=== PATIENT | female | born 1985 | race Caucasian/White ===

== ENCOUNTER 2021-05-05 16:15 | Emergency (ER) | payer OTHER, SELFPAY ==
[2021-05-05] VITALS (15 sets, daily range): BP systolic 120–187; BP diastolic 61–98; PULSE 99–123; RESP 14–25; TEMP 37.7; O2SAT 98–100
[2021-05-05 16:38] LABS: Basophils Percent Auto 0.2 % (0.2-1.2); Eosinophils Absolute Auto 0.1 K/mm3 (0-0.3); Eosinophils Percent Auto 0.5 % (0-4.4); Hematocrit 27.3 % (37.0-47.0); Hemoglobin 8.6 g/dL (12.0-15.0); Immature Granulocyte Percent A 0.8 % (0-0.5); Lymphocytes Absolute Auto 2.51 K/mm3 (0.9-3.2); Lymphocytes Percent Auto 21.2 % (18.3-44.2); Mean Corpuscular HGB Conc 31.5 g/dl (32-36); Mean Corpuscular Hemoglobin 26.6 pg (26-34); Mean Corpuscular Volume 84.5 fl (80-100); Mean Platelet Volume 8.7 fl (7.4-10.4); Monocytes Percent Auto 8.7 % (2.6-8.5); Neutrophils Absolute Auto 8.1 K/mm3 (1.3-6.7); Neutrophils Percent Auto 68.6 % (45.5-73.1); Platelet Count Result 333 k/mm3 (150-375); Red Blood Count 3.23 M/mm3 (4.2-5.4); White Blood Count 11.8 K/mm3 (4.5-10.0)
[2021-05-05 17:03] LABS: Beta HCG Quantitative < 2.39 mIU/ML
--- NOTE | 2021-05-05 17:25 | ED.FEMALEGU ---
HPI - Female Genitourinary General Chief complaint: Vaginal Bleeding Stated complaint: Weakness,Fatique Time Seen by Provider: 05/05/21 16:44 Source: patient Mode of arrival: ambulatory Limitations: no limitations History of Present Illness HPI Narrative: Patient is a 35-year-old female who presents complaining of heavy vaginal bleeding, weakness, lethargy, headache and decreased appetite x1.5 weeks. Patient is tearful during assessment. Patient reports a history of anxiety and depression. She denies dysuria, exposure to STDs or other complaints. She denies taking [id number] medications for symptom relief. Patient reports a history of anemia when she was a teenager and no further concerns. MD elicited complaint: vaginal bleeding Related Data Allergies Allergy/AdvReac Type Severity Reaction Status Date / Time Sulfa (Sulfonamide Allergy Unknown Rash Verified 05/05/21 16:23 Antibiotics) Review of Systems Review of Systems: Narrative: CONSTITUTIONAL: Denies fever, chills, or sweats. EYES: Denies visual changes, redness, or discharge. ENT: Denies rhinorrhea, congestion, sore throat, or otalgia. CARDIOVASCULAR: Denies chest pain, palpitations, or edema. RESPIRATORY: Denies cough or dyspnea. GASTROINTESTINAL: Denies abdominal pain, nausea, vomiting, or diarrhea. GENITOURINARY: Reports heavy vaginal bleeding x1.5 weeks SKIN: Denies rash or itching. MUSCULOSKELETAL: Denies back pain, joint pain, or myalgia. NEUROLOGIC: Reports headache and generalized weakness. PSYCHIATRIC: Denies anxiety or depression. [facility] Past Medical History Medical History ADHD Anxiety Depression History of PCOS Surgical History Surgical History History of tympanostomy tube placement Social History Social History (Updated 05/05/21 @ 18:54 by PHILIP Hanna) Smoking status: Former smoker Alcohol intake: never Substance use: never Living arrangements: with family Gender identity (if verbalized by the patient): Female Comments At the time of signature, I have reviewed and agree with nursing past medical, surgical, social, and family history unless otherwise noted. Please see nursing chart for further information. There is no relevant family history pertinent to the presenting complaint. Exam Narrative: Exam Narrative: GENERAL: Well-appearing, well-nourished, and in no acute distress. HEAD: Normocephalic, atraumatic. EYES: EOMI. No redness or drainage. Conjunctiva are normal. ENT: Mucous membranes pink and moist CHEST: No respiratory distress. Clear to auscultation. HEART: Regular rate and rhythm. No murmur appreciated. Normal peripheral pulses. GI: Soft, nontender without rebound, or guarding. No distention. Bowel sounds normal in all quadrants. : Pelvic exam completed, cervix closed, no lesions, active vaginal bleeding MUSCULOSKELETAL: No bony tenderness. EXTREMITIES: Normal range of motion. No edema. SKIN: Warm, dry, no rash. NEURO: No focal deficits. Alert and oriented x3. Gait steady. PSYCH: Normal affect. No signs of depression or anxiety. Course Vital Signs Vital signs: Vital Signs Temperature 37.7 C H 05/05/21 16:17 Pulse Rate 116 H 05/05/21 16:17 Respiratory Rate 18 05/05/21 16:17 Blood Pressure 148/96 H 05/05/21 16:17 Pulse Oximetry 99 05/05/21 16:17 Temperature 37.7 C H 05/05/21 16:17 Pulse Rate 99 05/05/21 19:32 Respiratory Rate 20 05/05/21 19:32 Blood Pressure 120/61 05/05/21 19:21 Pulse Oximetry 98 05/05/21 19:21 Reviewed-patient is informed that they may have pre-hypertension or hypertension based on a blood pressure reading. I recommend the patient call the primary care provider listed on their discharge instructions or a physician of their choice this week to arrange follow-up for further evaluation of possible pre-hypertension or hypertension.
--- NOTE | 2021-05-05 17:41 | PC.NURSE ---
Called in to lab and added on a CMP. Talked to Enrique at [phone]
[2021-05-05 17:55] LABS: Alanine Aminotransferase 20 U/L (4-35); Albumin Level 3.8 g/dL (3.5-5.1); Alkaline Phosphatase 76 U/L (38-126); Anion Gap 11 mmol/L (8-16); Aspartate Amino Transferase 23 U/L (14-36); Bilirubin,Total 0.2 mg/dL (0.2-1.3); Blood Urea Nitrogen 10 mg/dL (7-17); Calcium 8.7 mg/dL (8.4-10.2); Carbon Dioxide 22 mmol/L (22-30); Chloride 106 mmol/L (98-107); Estimated CRCL calculation 166 ml/min; Estimated Glomerular Filt Rate > 60; Glucose 122 mg/dL (65-105); Potassium 3.9 mmol/L (3.4-5.0); Sodium 139 mmol/L (137-145)
[2021-05-05] MEDS: SODIUM CHLORIDE 0.9% IV 1,000 ML 999 ML IV CONT ×2 (17:58→19:13)
[2021-05-05 18:55] LABS: Add Urine Microscopic? YES; Appearance Urine Cloudy (Clear); Bilirubin Urine Negative (Negative); Blood Urine 3+ (Negative); Color Urine Yellow (Yellow); Glucose Urine UA Negative (Negative); Ketones Urine Negative (Negative); Leukocyte Esterase Ur Trace LEU/UL (Negative); Mucus Urine Moderate /lpf; Nitrate Urine Negative (Negative); Protein Urine 2+ mg/dL (Negative); RBC Urine >75 /hpf (0-2); Specific Grav Ur 1.025 (1.001-1.035); Squamous Epithelial Cell Urine Occasional /hpf (Few); WBC Urine 0-3 /hpf
== END 2021-05-05 20:02 | disposition home or self-care (01) ==
PROVIDERS: Emergency Medicine; Emergency Provider Nurse Practitioner; PCP Nurse Practitioner Family
DX: N93.9 Abnormal uterine and vaginal bleeding, unspecified (principal); R03.0 Elevated blood-pressure reading, without diagnosis of hypertension; Z87.891 Personal history of nicotine dependence
CPT/HCPCS: 36415; 80053; 81001; 84702; 85025; 96361; 96374; 99284; J0131; J7030

== ENCOUNTER 2025-06-16 18:17 | Emergency (ER) | payer BC, SELFPAY ==
--- OUTSIDE RECORDS SUMMARY | 2025-06-16 18:19 | XMS_ITS | Clinical Summary ---
Author Organization [facility] Address [address] [place] [address] Phone Care Team Providers Care Entry Level Project Engineer Name Role Phone Varsha Osborn APRN, RECEPTION MANAGER Primary Care Provi betty Active Problems Problem Noted Date Diagnosed Date Panic disorder 09/26/2018 Generalized anxiety disorder 09/26/2018 Major depressive disorder, r ecurrent episode, severe with anxious distress 09/26/2018 ADHD (attention deficit hype ractivity disorder), inattentive type 09/26/2018 Social History Tobacco Use Types Packs/Day Years Used Date Smoking Tobacco: Never Assessed Comments Unknown Sex and Gender Information Value Date Recorded Sex Assigned at Not on file Legal Sex Female 7:16 PM CDT Gender Identity Not on file Sexual Orientation Not on file Plan of Treatment Health Maintenance Due Date Last Done Comments Hepatitis C Virus (HCV) Screening 1987 Human Papillomavirus (HPV) Immunization (1 - 3-dose series) 2002 Pap Smear 2008 Cervical Cancer Screening (CCS) 2017 HPV/Cotest 2017 SARS-COV-2 Immunization ( season) 2024 09/03/2022, 09/19/2021, 02/07/2021, Additional history exists Influenza Immunization (#1) 08/02/202508/02, 09/13/2020, 09/25/2019 Respiratory Syncytial Virus (RSV) Immunization (Adult) (1 - 1-dose 75+ series) 2062 Hepatitis B Immunization Completed 999, 09/01/1998, 07/21/1998 DTaP/Tdap/Td Immunization Discontinued 2005, 07/02/2002, 07/17/1993, Additional history exists Meningococcal Immunization (ACWY) Aged Out 03/08/2006 No longer eligible based on patient's age to complete this topic TdaP Immunization Completed 03/08/2006 Pneumococcal Immunization Combined Aged Out No longer eligible based on patient's age to complete this topic Rotavirus Immunization Aged Out No lo nger eligible based on patient's age to complete this topic Insurance [facility] Care Teams Entry Level Project Engineer Relationship Specialty Start Date End Date Varsha Osborn, PRODUCTION HARDENER, RECEPTION MANAGER PCP - General Certified Nurse Practitioner 09/17/18
--- OUTSIDE RECORDS SUMMARY | 2025-06-16 18:19 | XMS_ITS | Encounter Summary ---
Author Organization [facility] Healthcare Address [address] [place] [address] Care Team Providers Care Air Defense Specialist Name Role Phone Joaquin Lorenzana MD Primary Care Provider [phone] Encounter Details Date Type Department Care Team (Late Contact Info) Description 05/20/2025 Results [facility]Up [facility] [address] [address] Martina Wagner, CREDIT CLERK [address] [place] [address] Comprehensive metabolic panel, Thyroid Function [place], CBC with auto differential, Additional followed-up results: 2 Social History Tobacco Use Types Packs/Day Years Used Date Smoking Tobacco: Former Cigarettes - 2021 Smokeless Tobacco: Never Comments:On/ off Alcohol Use Standard Drinks/Week Comments Yes 3 (1 standard drink = 0.6 oz pur e alcohol) occasionally AUDIT-C Answer Date Recorded Q1: How often do you have a drink containing alc ohol? Monthly or less 10/22/2023 Q2: How many drinks containi ng alcohol do you have on a typical day when you are drinking? 1 or 2 10/22/2023 Q3: How often do you have si x or more drinks on one occasion? Never 10/22/2023 PHQ-2 Answer Date Recorded PHQ-2 Total Score (If total score is 3 or more points, staff should administer the PHQ-9) 5 05/04/2025 PHQ-9 Answer Date Recorded PHQ-9 Total Score 13 05/04/2025 Personal Safety Answer Date Recorded Have you ever been in or are you currently in a harmful physical or emotional relationship or is someone making you feel afraid or unsafe? 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 She did experiencing some spotting afterwards but denies having period since then. Denies blood in stool, urine, black tarry stools or any symptoms of concern. Thank you. documented in this encounter Plan of Treatment Not on file documented as of this encounter Visit Diagnoses Not on filedocumented in this encounter Historical Medications * This list may reflect changes made after this encounter. cetirizine 10 mg capsule Take by mouth daily added in this encounter Care Teams Air Defense Specialist Relationship Specialty Start Date End Date Joaquin Lorenzana MD [address] [place] [address] PCP - General Family Medicine 08/14/22 documented as of this encounter
--- OUTSIDE RECORDS SUMMARY | 2025-06-16 18:19 | XMS_ITS | Encounter Summary ---
Author Organization [facility] Healthcare Address [address] [place] [address] Care Team Providers Care Jd Edwards Consultant Name Role Phone Joaquin Lorenzana MD Primary Care Provider [phone] Encounter Details Date Type Department Care Team (Late Contact Info) Description 06/01/2025 Results [facility] [address] [place] [address] Martina Wagner, SWING GRINDER [address] [place] [address] Ferritin, Iron profile w/ IBC Social History Tobacco Use Types Packs/Day Years [...] on file Legal Sex Female 9:22 AM CLINICAL NUTRITIONIST Gender Identity Not on file Sexual Orientation Not on file 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 She listened to SWING GRINDER Martina Castillo' voicemessage which instructed her to call back and get scheduled for iron infusion. DYE PADDER OPERATOR warm-transferredto the back-line. Does message need to be routed? No Reason for Warm Transfer: Patient returning call from practice Practice Accepted the Warm Transfer? Yes Additional Comments If YES above, and no barriers. documented in this encounter Plan of Treatment Not on file documented as of this encounter Visit Diagnoses Not on filedocumented in this encounter Care Teams Jd Edwards Consultant Relationship Specialty Start Date End Date Joaquin Lorenzana MD [address] [place] [address] PCP - General Family Medicine 08/14/22 documented as of this encounter
--- OUTSIDE RECORDS SUMMARY | 2025-06-16 18:19 | XMS_ITS | Clinical Summary ---
Author Organization [email or web address] Address [address] [facility] [place] [address] Care Team Providers Care Director Clinical Applications Name Role Phone Greg Kennedy MD Primary Care Provider Unavailabl e Source Comments [email or web address],non-owned Affiliates and Associated Physician Practices is amultiple site organization consisting of ambulatory clinics and hospital sitesin [place], [place], [place] and [place]. This disclosure is being madepursuant to the Care Everywhere program and may not contain all information available regarding this patient. Last updated 18.[email or web address] Allergies Active Allergy Reactions Criticality Noted Date Comments Sulfa Drugs Unknown High 02/26/2013 Social History Tobacco Use Types Packs/Day Years Used Date Smoking Tobacco: Never Assessed Comments Unknown Sex and Gender Information Value Date Recorded Sex Assigned at Not on file Legal Sex Female 10:56 AM CDT Gender Identity Not on file Sexual Orientation Not on file Plan of Treatment Health Maintenance Due Date Last Done Comments HIV SCREENING 2002 HEPATITIS C SCREENING 12/25/2005 DTAP/TDAP/TD VACCINES (1 - Tdap) 2006 HEPATITIS B VACCINE (1 of 3 - 19+ 3-dose series) 2006 HPV VACCINE (1 - 3-dose SCDM series) 2014 COVID-19 VACCINE ( - 2023-2 5 season) 2024 DEPRESSION SCREENING 12/02/2024 INFLUENZA VACCINE (#1) 2025 ZOSTER VACCINE (1 of 2) 2037 HIB VACCINE Aged Out No longer eligi ble based on patient's age to complete this topic MENINGOCOCCAL (Group B) VACC INE SHARED DECISION-MAKING Aged Out No longer eligibl e based on patient's age to complete this topic MENINGOCOCCAL GROUPS A/C/Y/W VACCINE Aged Out No longer eligible b ased on patient's age to complete this topic PNEUMOCOCCAL VACCINE Aged Out No long er eligible based on patient's age to complete this topic Insurance [facility] Care Teams Director Clinical Applications Relationship Specialty Start Date End Date Greg Kennedy MD PCP - General Internal Medicine 02/26/13
--- OUTSIDE RECORDS SUMMARY | 2025-06-16 18:19 | XMS_ITS | Clinical Summary ---
Author Organization [address] lto Address [address] [place] [address] Care Team Providers Care Plastic Surgeon Name Role Phone Joaquin Lorenzana MD Primary Care Provider [phone] Allergies Active Allergy Reactions Criticality Noted Date Comments Sulfa (Sulfonamide Antibiotics) Rash Medium 09/02 Sulfasalazine Unknown High 02/26/2013 Medications MULTIVITAMIN ORAL Take 1 tablet/chew tab by mouth nightly Has Procare Bariatric Vitamin Active calcium citrate-vitamin D3 500 mg-12.5 mcg (500 unit) tablet,chewable Indications:Pre vention of Vitamin D Deficiency Take 1 tablet/chew tab by mouth 2 (two) times a day Has Bariatric Calcium citrate with Vitamin D chew Active albuterol HFA (PROVENTIL HFA,VENTOLIN HFA,PROAIR HFA) 90 mcg/actuation inhalerIndicati ons:Bronchitis Inhale 2 puffs every 4 (four) hours as needed for shortness of breath or wheezing (cough) 18 g 4 Active inhalational spacing device (Aerochamber MV) spacerIndicatio ns:Bronchitis Use with albuterol inhaler 1 each 4 Active buPROPion XL (WELLBUTRIN XL) 300 mg 24 hr tablet Take 1 tablet (300 mg total) by mouth every morning 90 tablet 4 4 Active dextroamphetami ne-amphetamine (ADDERALL) 5 mg tablet Take 1 tablet (5 mg total) by mouth 2 (two) times a day before breakfast and lunch 60 tablet 4 Active Additional Information Patient not taking.Reported on 05/04/2025 buPROPion XL (WELLBUTRIN XL) 150 mg 24 hr tablet Take 1 tablet (150 mg total) by mouth every morning 90 tablet 4 5 05/04/20 26 Active cetirizine 10 mg capsule Take by mouth daily Active Hospital, Clinic, or Other Facility Administered Medication Ordered Dose Route Frequency Start Date End Date Status levonorgestreL (MIRENA) 21 mcg/24hr (up to 8 yrs) 52 mg IUD 1 eachIndications:Pre gnancy Contraception 1 each intrauterine Continuous (implanted device) 03/09/2025 0 Active Active Problems Problem Noted Date Diagnosed Date Iron deficiency anemia 06/01/2025 Moderate major depression 05/06/2025 Assessment & Plan (05/06/2025 10:50 AM CDT): On Wellbutrin 300 mg. Reports emotional lability. Discussed increasing Wellbutrin to 450 mg. Informed about exercise benefits for mood. - Increase Wellbutrin to 450 mg daily by adding an additional 150 mg tablet. - Refer to in-house counselor for therapy. - Encourage regular exercise. Acute cystitis with hematuria 11/19/2024 Assessment & Plan (11/19/2024 8:12 AM CORPORATE SERVICES MANAGER): Asymptomatic. Will recheck UA. Encouraged to push p.o. water intake. Vaginal candidiasis 10/06/2024 Assessment & Plan (10/06/2024 8:34 AM CORPORATE SERVICES MANAGER): Diflucan E scribed. Follow up with commissioned police officer if symptoms persist after treatment. Morbid (severe) obesity due to excess calories 0 03/04/2023 Dermoid cyst of right ovary 01/01/2023 Overview (01/01/2023): Added automatically from request for surgery [id number] Pelvic and perineal pain 01/01/2023 Overview (01/01/2023): Added automatically from request for surgery [id number] Preoperative clearance 12/07/2022 Assessment & Plan (12/07/2022 3:30 PM CORPORATE SERVICES MANAGER): Patient cleared for surgery pending review of labs and EKG. Denies history of surgery or previous anesthesia. Denies COPD/asthma, GERRY, DVT/PE. Allergic to sulfa. PMHx includes GERD, depression, PCOS, Right ovarian cyst. Non-smoker Gastroesophageal reflux disease 12/06/2022 Assessment & Plan (12/07/2022 3:21 PM CORPORATE SERVICES MANAGER): Well controlled on prn use of omeprazole 20 mg daily. Morbid obesity 12/06/2022 Major depressive disorder, recurrent episode, mi ld 12/06/2022 Annual physical exam 04/02/2022 Assessment & Plan (10/06/2024 8:27 AM CORPORATE SERVICES MANAGER): In regard to health maintenance, Screening labs ordered. She will complete today. WWE- past due. Will schedule with commissioned police officer Influenza vaccine administered today Eat a healthy diet: focus on lean meats and proteins, more fruits, vegetables and whole grains and low in sugars and fats. Limit red meat and avoid processed meat. Maintain a healthy weight; avoid being overweight. Aim for a normal body mass index (BMI) of 18.5-24.9. Help learning to eat healthier, we can set up appointment with switchboard wire worker helper/tierce filler. Have an active lifestyle, strive for 30 minutes of moderate exercise 5 times a week and strength or resistance training at least twice a week. Use broad-spectrum (UVA+UVB) sunscreen with SPF 30 or greater, is water resistant, limit time spent in the sun (10 am-4pm), wear hat, wear UV protective clothing, wear sunglasses. Never use a tanning bed. Skin that was irradiated may be more sensitive over your lifetime. Do not smoke or chew tobacco; participate in a smoking cessation program. Limit alcohol intake, 1 drink per day for a woman and 2 drinks per day for a man. Assessment & Plan (04/02/2022 8:18 PM CDT): 1. Eat a healthy diet: focus on lean meats and proteins, more fruits, vegetables and whole grains and low in sugars and fats. Limit red meat and avoid processed meat. 2. Maintain a healthy weight; avoid being overweight. Aim for a normal body mass index (BMI) of 18.5-24.9. Help learning to eat healthier, we can set up appointment with switchboard wire worker helper/tierce filler. 3. Have an active lifestyle, strive for 30 minutes of moderate exercise 5 times a week and strength or resistance training at least twice a week. 4. Use broad-spectrum (UVA+UVB) sunscreen with SPF 30 or greater, is water resistant, limit time spent in the sun (10 am-4pm), wear hat, wear UV protective clothing, wear sunglasses. Never use a tanning bed. Skin that was irradiated may be more sensitive over your lifetime. 5. Does not smoke. 6. Limit alcohol intake, 1 drink per day for a woman. Encounter for screening for lipid disorder 05/15 Assessment & Plan (08/14/2022 8:21 AM CDT): To repeat labs prior to next appt. Assessment & Plan (04/03/2022 9:37 AM CDT): 07/20/20 UB=423 HDL=57 BR=828 ADD=150 06/10/21 CE=429 HDL=54 PR=235 NCB=729 Lipid panel ordered; will call w/results when received. Reviewed diet/exercise recommendations. Assessment & Plan (05/15/2021 4:57 PM CDT): Lipid panel ordered; will call w/results when received. Reviewed diet/exercise recommendations. Menorrhagia with regular cycle 05/15/2021 Menorrhagia with irregular cycle 05/15/2021 Assessment & Plan (05/15/2021 4:55 PM CDT): Provera 10mg dailiy x5 sent. She is to engage with commissioned police officer for further eval. Will recheck CBC in 1-2 weeks. Reviewed red flags; what wound warrant call/rtc or ED for more emergent eval. Reviewed [facility] notes from 05/05/21. See papers scanned in media. Anemia 05/15/2021 Assessment & Plan (05/06/2025 10:50 AM CDT): Fatigue and malaise potentially related to anemia. Changed IUD to Mirena for irregular bleeding, which has improved. - Order CBC to assess current anemia status. - Monitor bleeding patterns and reassess in a few months if symptoms persist. Assessment & Plan (05/15/2021 4:57 PM CDT): CBC ordered. Reviewed red flags; what would warrant rtc/call or ED for more emergent eval. To engage w/commissioned police officer for menorrhagia. Need for influenza vaccination 09/13/2020 Assessment & Plan (08/14/2022 8:27 AM CDT): Flu vaccine given today. Discussed possible tenderness/redness at injection site. Assessment & Plan (09/13/2020 9:03 AM CDT): Flu vaccine given today. Discussed possible tenderness/redness at injection site. ADHD (attention deficit hype ractivity disorder), inattentive type 10/10/2018 Assessment & Plan (11/19/2024 8:12 AM CORPORATE SERVICES MANAGER): Will continue with Adderall at 5 mg and add lunchtime dose. Will monitor response. Assessment & Plan (10/06/2024 8:29 AM CORPORATE SERVICES MANAGER): Not controlled on bupropion. Will restart Adderall. Follow up in 1 month. Can consider twice daily dosing p.r.n.. Reviewed red flags. Also discussed establishing care with psychiatry. She is agreeable with plan and states understanding. Assessment & Plan (08/14/2022 8:45 AM CDT): Bupropion XL 300mg daily. Reviewed med SE & scheduling. Reviewed medication side effects and scheduling. Reviewed red flags. Assessment & Plan (04/03/2022 9:36 AM CDT): Bupropion XL 300mg daily sent. Reviewed med SE & scheduling. F/u appt set for 05/22/22. Reviewed medication side effects and scheduling. Reviewed red flags. Assessment & Plan (09/13/2020 9:05 AM CDT): Has not taken adderall in >1 year. Feels that she cannot concentrate, cannot start on tasks, difficulty continuing task when started. adderall 5mg bid refilled. Sent to [facility]. Aware tot stanley 2nd dose before 2p if needed. Reports improvement in work/family with medications to control ADD. Aware to monitor weight/HR/BP. Reviewed medication side effects and scheduling. Reviewed red flags. Assessment & Plan (07/26/2020 2:54 PM CDT): Not currently taking adderall & does not feel need to take. 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 Anxiety and depression 09/09/2018 Assessment & Plan (11/19/2024 8:12 AM CORPORATE SERVICES MANAGER): Reports stable on bupropion. Will continue. Red flags reviewed. Assessment & Plan (12/07/2022 3:29 PM CORPORATE SERVICES MANAGER): Good control of symptoms on current medication regimen. Denies feeling down, depressed or hopeless. No changes to current medication regimen. Reviewed need to follow up with any changes. Will continue to monitor. Assessment & Plan (08/14/2022 8:20 AM CDT): Restarted Bupropion XL 300mg in April. Reports good control of anxiety/depression w/current regimen. No changes to be made at this time. Reviewed med Ses & scheduling. Reviewed red flags. Assessment & Plan (04/03/2022 9:36 AM CDT): Has been off of bupropion for several months. [place] better whens he was taking them. Uncertain why she did not call back in. Bupropion XL 300mg sent locally & mail order. appt set for 05/22/22. Aware that it may take up to 4 weeks to notice effects & 6-8 weeks to feel full effects. Reviewed main Ses of GI upset & PALOMARES Reviewed red flags; aware to call office/911 if thoughts of harming self/others. To stop medications immediately in that instance. Assessment & Plan (09/13/2020 9:06 AM CDT): Feeling improved w/buspar. Reports good control of anxiety/depression w/current regimen. No changes to be made at this time. Bupropion 300mg & buspar 7.5mg tid refill sent. Reviewed med Ses & scheduling. Reviewed red flags. Assessment & Plan (07/26/2020 2:53 PM CDT): buspar 7.5mg tid sent. Reviewed med SE & scheduling. To make f/u appt in 6-7 weeks. Reports poor control of anxiety w/current regimen. Reviewed med Ses & scheduling. Reviewed red flags. PCOS (polycystic ovarian syndrome) 07/02/2016 Overview (10/11/2017): PCOS (polycystic ovarian syndrome) Assessment & Plan (05/15/2021 4:47 PM CDT): Has been off metformin for some time. Resent metformin. Reviewed med SE & scheduling. Diet/exercise to decrease weight. Resolved Problems Problem Noted Date Diagnosed Date Resolved Date Class 3 severe obesity due t o excess calories without serious comorbidity with body mass index (BMI) of 50.0 to 59.9 in adult 05/15/202111/2023 Assessment & Plan (08/14/2022 8:20 AM CDT): Reviewed need to lose weight, reviewed health benefits. Reviewed recommendations for daily intake & activity 20-30 minutes/day. Discussed healthy diet and importance of regular physical activity. Has lost 8# since 04/2022 appt. Assessment & Plan (04/03/2022 9:37 AM CDT): Reviewed need to lose weight, reviewed health benefits. Reviewed recommendations for daily intake & activity 20-30 minutes/day. Discussed healthy diet and importance of regular physical activity. Assessment & Plan (05/15/2021 1:32 PM CDT): The BMI is in the obese range thus increasing your risk for cardiovascular, endocrine, GI, and musculoskeletal problems. Strive to cut back on calories and increase exercise to achieve weight loss. Include at least 4-5 fruits and vegetables in the diet daily and exercise for about 30 min nearly every day. Limit fried and high fat foods and include lean sources of protein as well as low fat dairy or other calcium sources. Consider making short and director long term care goal to track your progress. Keep a diet/exercise record or on line resource to track calories in and out. Discuss your efforts with me at the next visit. Look up [employer] - this is a free calorie tracking dev. Discussed healthy diet and importance of regular physical activity. BMI 50.0-59.9, adult ([facility]) 09/13/2020 11/12/2023 Morbid obesity with BMI of 50.0-59.9, adult 10/21/2018 05/15/2021 Assessment & Plan (09/13/2020 9:08 AM CDT): Reviewed need to lose weight, reviewed health benefits. Reviewed recommendations for daily intake & activity 20-30 minutes/day. Discussed healthy diet and importance of regular physical activity. Assessment & Plan (07/26/2020 2:37 PM CDT): The BMI is in the obese range thus increasing your risk for cardiovascular, endocrine, GI, and musculoskeletal problems. Strive to cut back on calories and increase exercise to achieve weight loss. Include at least 4-5 fruits and vegetables in the diet daily and exercise for about 30 min nearly every day. Limit fried and high fat foods and include lean sources of protein as well as low fat dairy or other calcium sources. Consider making short and fci goal to track your progress. Keep a diet/exercise record or on line resource to track calories in and out. Discuss your efforts with me at the next visit. Look up [employer] - this is a free calorie tracking dev. Discussed healthy diet and importance of regular physical activity. Generalized anxiety disorder 09/26/2018 12/15/2020 Major depressive disorder, r ecurrent episode, severe with anxious distress 09/26/2018 07/26/2020 Panic disorder 09/26/2018 12/15/2020 Morbid obesity with BMI of 45.0-49.9, adult 03/27/2018 07/26/2020 Depression 07/02/2016 12/15/2020 Overview (03/07/2017): Depression, unspecified depression type Assessment & Plan (07/26/2020 2:53 PM CDT): To call counselor (Hoda Farley) that she used to see to see if she is able to do visits via Zoom instead of driving to her practice that is 1+hr away. Discussed also asking her if she has someone closer to our area to whom she could refer Ron if unable to do Zoom/telehealth visits. Will continue buproprion 300mg daily. Reports fair-good control of depression w/current regimen. No changes to be made at this time. Reviewed med Ses & scheduling. Reviewed red flags. Irregular periods 04/14/2013 12/15/2020 Dysmenorrhea 04/14/2013 12/15/2020 Encounters Date Type Department Care Team Description 06/10/2025 8:00 AM CDT Infusion [address] [place] [phone] Other iron deficiency anemia (Primary Dx) 06/02/[address] [place] [phone] Janie Garcia RN 06/02/2025 Orders Only [address] [place] [phone] Naye Alvarado RN 06/01/2025 Orders Only [facility] [address] [phone] Ron Wagner NP Other iron deficiency anemia (Primary Dx) 06/01/2025 Results Follow-Up [facility] [address] [place] [address] Ron Wagner, RAUL Ferritin, Iron profile w/ IBC 05/28/2025 1:50 PM CDT Lab [facility] [address] [place] [phone] Anemia, unspecified type 05/20/2025 Orders Only [facility] [address] [phone] Ron Wagner NP Anemia, unspecified type (Primary Dx); Colon cancer screening 05/20/2025 Results Follow-Up [facility] [address] [phone] Ron Wagner NP Comprehensive metabolic panel, Thyroid Function Burt, CBC with auto differential, Additional followed-up results: 2 05/17/2025 10:15 AM CDT Lab [facility] [address] [place] [phone] Anemia, unspecified type; Moderate major depression (HCC) 05/17/2025 Telephone [facility] [address] [phone] Tracey Holt, TRANSCRIBER 05/07/2025 Telephone [facility] [address] [phone] Tracey Holt, TRANSCRIBER 05/04/2025 4:00 PM CDT Office Visit [facility] [address] [phone] Ron Wagner NP Anemia, unspecified type (Primary Dx); Moderate major depression (HCC); Class 3 severe obesity due to excess calories with serious comorbidity and body mass index (BMI) of 40.0 to 44.9 in adult 03/18/2025 Results Follow-Up [address] [phone] Peri Heck MD Pap and High Risk HPV and Genotyping (Cytology Component) from Last 3 Months Immunizations Immunization Administration Dates Next Due DTP 07/17/1993, 9,07/11/1988,05/02,02/29/1988 Hep A, Pediatric 07/14/2003 Hep B, Adolescent or Pediatric 09/11/1999,1997,07/21/1998 HiB 03/10/1990 IPV 07/17/1993, 9,05/02/1988,02/28 Influenza, Quadrivalent, Spl it, Intramuscular 09/25/2019 Influenza, Quadrivalent, Spl it, Preservative Free, Intramuscular 10/22/2023,08/14/2022,09/13/2020,09/24,09/09/2018,10/11/2017 Influenza, Trivalent, Preser vative Free, Intramuscular 10/06/2024 Influenza, Unspecified 09/01/2021(Deferr ed: Patient Refused),10/11/2017,12/02/2016 MMR 07/17/1993,03/10/1990 Meningococcal Polysaccharide (Menomune) 03/08/2006 Pfizer SARS-CoV-2 Monovalent Vaccination (12+ Yrs) PURPLE 02/07/2021,01/17/2021 TD Preservative Free 12/02/2005 Td, adsorbed 07/02/2002 Tdap 03/08/2006,12/02/2003 Surgical History Surgery Date Site/Laterality Comments OTHER SURGICAL HISTORY Dilated Eye Exam OTHER SURGICAL HISTORY Last A1C- 5.9 TYMPANOSTOMY TUBE PLACEMENT childhood GASTRIC BYPASS 03/04/2023 OVARIAN CYST REMOVAL 03/04/2023 Medical History Medical History Date Comments Depression 10/2015 Depression; Comm ents: DRS 07/02/2016 - Anemia Migraines Acid reflux Anxiety 2004 Morbid obesity (HCC) 1999 Family History Medical History Relation Name Comments Alcohol abuse Father mb Diabetes Father mb Diabetes mellit ; Liver cancer Father mb Liver Cancer; C ause of : Liver Cancer Alcohol abuse Mother nr Hypertension Mother nr Hypertension; Liver disease Mother nr Liver disease; Cause of : Liver disease Heart attack Paternal Grandfather Anesthesia problems Neg Hx Relation Name Status Comments Father mb (Age 47) Mother nr (Age 47) Paternal Grandfather Social History Tobacco Use Types Packs/Day Years Used Date Smoking Tobacco: Former Cigarettes 2 - 2021 Smokeless Tobacco: Never Tobacco Cessation:Counseling Given: Not Answered Comments:On/ off Alcohol Use Standard Drinks/Week Comments [...] on file Legal Sex Female 9:22 AM CORPORATE SERVICES MANAGER Gender Identity Not on file Sexual Orientation Not on file 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 on file Not on file Not o n file Obstetrics History Para Term AB IAB SAB Ectopic Multiple Livin g Live Births 0 0 0 0 0 0 0 0 0 0 0 Last Filed Vital Signs Vital Sign Reading Time Taken Comments Blood Pressure 120/77 06/10/2025 8:06 AM CDT Pulse 70 06/10/2025 8:06 AM CDT Temperature 36.3 C (97.3 F) 06/10/2025 8:06 AM CDT Respiratory Rate 18 06/10/2025 8:06 AM CDT Oxygen Saturation 100% 06/10/2025 8:06 AM CDT Inhaled Oxygen Concentration - - Weight 109.5 kg (241 lb 6.4 oz) 05/04/2025 4:08 PM CDT Height 162.6 cm (5' 4.02) 05/04/2025 4:08 PM CD T Body Mass Index 41.42 05/04/2025 4:08 PM CDT Plan of Treatment Health Maintenance Due Date Last Done Comments Hepatitis C Screening 1987 Varicella Vaccines (1 of 2 - 13+ 2-dose series) 2000 DTaP/Tdap/Td Vaccine (9 - Td or Tdap) 03/08/2016 03/08/2006, 12/02/2005, 12/02/2003, Additional history exists Covid-19 Vaccine ( season) 2024 02/07/2021, 01/17/2021 Influenza Vaccine (#1) 2025 , 10/22/2023, 08/14/2022, Additional history exists Cervical Cancer Screening 03/03/20262024, 03/03/2025, 03/21/2019, Additional history exists Regular Well Visit/Exam 18-64 03/03/2026 03/03/2025, 10/06/2024, 10/22/2023, Additional history exists Depression Screening 05/04/2026 05/04/2025, 05/04/2025, 10/06/2024, Additional history exists Hepatitis B Screening Completed 09/11/1999 , 09/01/1998, 07/21/1998 HPV Vaccines Aged Out No longer eligi ble based on patient's age to complete this topic Pneumococcal vaccine <65 Aged Out No longer eligible based on patient's age to complete this topic Medical Devices Implanted Type Area It Software Engineer Device Identifier Shelf Expiration Date Model / Serial / Lot Iud N/A: Uterus Procedures Procedure Name Priority Date/Time Associated Diagnosis Comments IRON PROFILE W/ IBC Routine 05/28/2025 1 :49 PM CDT Anemia, unspecified type FERRITIN Routine 05/28/2025 1:49 PM CDT Anemia, unspecified type EGFR Routine 05/17/2025 10:13 AM CDT Anemia, unspecified type Moderate major depression (HCC) DIFFERENTIAL AUTO Routine 05/17/2025 10: 13 AM CDT Anemia, unspecified type Moderate major depression (HCC) CBC WITH AUTO DIFFERENTIAL Routine 05/17/2025 10:13 AM CDT Anemia, unspecified type Moderate major depression (HCC) THYROID FUNCTION CASCADE Routine 05/17/2025 10:13 AM CDT Anemia, unspecified type Moderate major depression (HCC) COMPREHENSIVE METABOLIC PANEL Routine 05/17/2025 10:13 AM CDT Anemia, unspecified type Moderate major depression (HCC) HIGH RISK HPV DNA DETECTION WITH GENOTYPING Routine 03/03/2025 5:18 PM CDT Encounter for well woman exam with routine gynecological exam from Last 3 Months or Most Recently Relevant to Health Maintenance Results * (ABNORMAL) Iron profile w/ IBC (05/28/2025 1:49 PM CDT) Iron 14(L) 35 - 145 mcg/dl Comment:Testing performed by : [facility], [address] [place] [address]., [id number] TIBC 479(H) 250 - 400 mcg/dL DELMAR KIMBLE (BRENDAN) Comment:Testing performed by : [facility], [address] [place] [address], [id number] Transferrin saturation 3(L) 20 - 50 % DELMAR KIMBLE (BRENDAN) Comment:Testing performed by : [facility], [address] [place] [address], [id number] Blood 05/28/2025 1:49 PM CDT 05/28/2025 6:14 PM CDT Ron Wagner NP LAB BLOOD ORDERABLES Final Result Performing Organization Address City/[facility]/ZIP Co de Phone Number DELMAR KIMBLE (BRENDAN) 1 [facility] [place] [address] * (ABNORMAL) Ferritin (05/28/2025 1:49 PM CDT) Ferritin 8(L) 13 - 150 ng/mL Comment:Testing performed by : [address] [id number] Blood 05/28/2025 1:49 PM CDT 05/28/2025 6:14 PM CDT Ron Wagner NP LAB BLOOD ORDERABLES Final Result DELMAR KIMBLE (BRENDAN) 1 [facility] Department [place] [address] * eGFR (05/17/2025 10:13 AM CDT) Pathologist [facility] [place] eGFR >90 >=60 mL/min/1. 73 m2 Comment: Interpretive Data Reference Interval Normal >/= 90 mL/min/1.73m2 Mildly decreased* 60 - 89 mL/min/1.73m2 Mildly to moderately decreased 45 - 59 mL/min/1.73m2 Moderately to severely decreased 30 - 44 mL/min/1.73m2 Severely decreased 15 - 29 mL/min/1.73m2 Kidney Failure < 15 mL/min/1.73m2 *Relative to young adult level Estimated glomerular filtration rate is determined by the 2020 CKD-EPI equation recommended by the National Kidney Foundation (A Unifying Approach to GFR Estimation: Recommendations of the NKF-ASK Task Force on Reassessing the Inclusion of Race in Diagnosing Kidney Disease, JASN 2020). The CKD-EPI equation should not be used for patients with unstable renal function and has not been validated in children and those over 70. Current interpretive data was last reviewed 2021. Testing performed by: [facility], [address] [place] [address]., [id number] Blood 05/17/2025 10:1 3 AM CDT 05/17/2025 3:19 PM CDT Ron Wagner NP LAB BLOOD ORDERABLES Final Result DELMAR KIMBLE (BALDWIN) 1 [facility] Department [place] [address] * (ABNORMAL) Differential, auto (05/17/2025 10:13 AM CDT) Pathologist [facility] [place] Neutrophil abs 3.88 1.50 - 6.50 K/cumm Comment:Testing performed by : [facility], [address] [place] [address]., [id number] Imm gran abs 0.02 0.00 - 0.10 K/cumm DELMAR K[facility]BLE (BRENDAN) Comment:Testing performed by : [facility], [address] [place] [address]., [address] Lymphocyte abs 2.18 0.80 - 3.30 K/cumm [facility] ([place]) Comment:Testing performed by : [facility], [address] [place] [address]., [id number] Monocyte abs 0.83(H) 0.20 - 0.80 K/cumm [facility] ([place]) Comment:Testing performed by : [facility], [address] [place] [address]., [address] Eosinophil abs 0.16 0.00 - 0.50 K/cumm [facility] ([place]) Comment:Testing performed by : [facility], [address] [place] [address]., [address] Basophil abs 0.02 0.00 - 0.10 K/cumm [facility] ([place]) Comment:Testing performed by : [address] [address] Neutrophil pct 54.7 % [facility] ([place]) Comment: Interpretive Data Percent cell count reference ranges are not reported, since discordance with absolute values may lead to misinterpretation of CBC data. Current Interpretive Data was last revised on 2018. Testing performed by: [facility], [address] [place] [address]., [address]61 Imm gran pct 0.3 % [facility] ([place]) Comment: Interpretive Data Percent cell count reference ranges are not reported, since discordance with absolute values may lead to misinterpretation of CBC data. Current Interpretive Data was last revised on 2018. Testing performed by: [address] [address] Lymphocyte pct 30.7 % [facility] ([place]) Comment: Interpretive Data Percent cell count reference ranges are not reported, since discordance with absolute values may lead to misinterpretation of CBC data. Current Interpretive Data was last revised on 2018. Testing performed by: [address] [address] Monocyte pct 11.7 % [facility] ([place]) Comment: Interpretive Data Percent cell count reference ranges are not reported, since discordance with absolute values may lead to misinterpretation of CBC data. Current Interpretive Data was last revised on 2018. Testing performed by: [address] [address] Eosinophil pct 2.3 % [facility] ([place]) Comment: Interpretive Data Percent cell count reference ranges are not reported, since discordance with absolute values may lead to misinterpretation of CBC data. Current Interpretive Data was last revised on 2018. Testing performed by: [facility], [address] [place] [address]., [address]44 Basophil pct 0.3 % [facility] ([place]) Comment: Interpretive Data Percent cell count reference ranges are not reported, since discordance with absolute values may lead to misinterpretation of CBC data. Current Interpretive Data was last revised on 2018. Testing performed by: [address] [address] Blood 05/17/2025 10:1 3 AM CDT 05/17/2025 3:10 PM CDT Ron Wagner NP LAB BLOOD ORDERABLES Final Result DELMAR [facility] ([place]) 1 [facility] [place] [address] * Thyroid Function Burt (05/17/2025 10:13 AM CDT) Pathologist [facility] [place] TSH 1.44 0.30 - 4.20 mcIUnit/mL Comment:Testing performed by : [facility], [address] [place] [address], [id number] Blood 05/17/2025 10:1 3 AM CDT 05/17/2025 3:10 PM CDT Ron Wagner NP LAB BLOOD ORDERABLES Final Result DELMAR KIMBLE ([place]) [address] [facility] [place] [address] * (ABNORMAL) CBC with auto differential (05/17/2025 10:13 AM CDT) WBC 7.09 3.80 - 9.90 K/cumm Comment:Testing performed by : [address], [address] Hgb 9.5(L) 11.9 - 15.5 g/dL [facility] ([place]) Comment:Testing performed by : [address], [address] Hct 34.0(L) 35.6 - 45.5 % [facility] ([place]) Comment:Testing performed by : [address], [address] Plt 349 150 - 400 K/cumm [facility] ([place]) Comment:Testing performed by : [address], [address] MPV 10.2 9.1 - 12.3 fL [facility] ([place]) Comment:Testing performed by : [address], [address] RBC 4.70 3.90 - 5.20 M/cumm [facility] ([place]) Comment:Testing performed by : [address], [address] MCV 72.3(L) 81.3 - 96.4 fL [facility] ([place]) Comment:Testing performed by : [address], [address] MCH 20.2(L) 27.1 - 33.3 pg [facility] ([place]) Comment:Testing performed by : [address], [address] MCHC 27.9(L) 32.3 - 35.7 g/dL [facility] ([place]) Comment:Testing performed by : [address], [address] RDW CV 19.0(H) 11.1 - 14.9 % [facility] ([place]) Comment:Testing performed by : [address], [address] RDW SD 47.4 35.7 - 48.1 fL [facility] ([place]) Comment:Testing performed by : [address], [address] NRBC abs 0.00 0.00 - 0.01 K/cumm [facility] ([place]) Comment:Testing performed by : [address], [address] Blood 05/17/2025 10:1 3 AM CDT 05/17/2025 3:10 PM CDT Ron Wagner [employer] LAB BLOOD ORDERABLES Final Result DELMAR KIMBLE ([place]) 1 [facility] Department [place] [address] * Comprehensive metabolic panel (05/17/2025 10:13 AM CDT) Sodium 139 135 - 145 mmol/L Comment:Testing performed by : [address] [address] Potassium, pl 4.3 3.3 - 4.9 mmol/L DELMAR KIMBLE (BRENDAN) Comment:Testing performed by : [address], [address] Chloride 105 97 - 110 mmol/L [facility] ([place]) Comment:Testing performed by : [address], [address] CO2 22 22 - 32 mmol/L [facility] ([place]) Comment:Testing performed by : [address], [address] Anion gap 12 2 - 15 mmol/L [facility] ([place]) Comment:Testing performed by : [address], [address] BUN 11 6 - 25 mg/dL [facility] ([place]) Comment:Testing performed by : [address], [address] Creatinine 0.62 0.60 - 1.10 mg/dL [facility] ([place]) Comment:Testing performed by : [address], [address] Glucose 72 70 - 199 mg/dL [facility] ([place]) Comment: Interpretive Data Fasting glucose >/= 126 mg/dl is diagnostic for diabetes. Fasting is defined as no caloric intake for at least 8 hours. Fasting glucose between 100 mg/dl to 125 mg/dl is diagnostic of prediabetes. In a patient with classic symptoms of hyperglycemia or hyperglycemic crisis, a random glucose >/= 200 mg/dl is diagnostic for diabetes. In the absence of unequivocal hyperglycemia, results should be confirmed by repeat testing. The classification and Diagnosis of Diabetes Diabetes Care 202; 46: S19-S40. Current interpretive data was last revised 2022. Testing performed by: [facility], [address] [place] [address], [address] Calcium 9.1 8.5 - 10.3 mg/dL [facility] ([place]) Comment:Testing performed by : [address], [address] Bilirubin, total 0.4 0.1 - 1.2 mg/dL [facility] ([place]) Comment:Testing performed by : [address], [address] Protein, pl 7.5 6.5 - 8.5 g/dL [facility] ([place]) Comment:Testing performed by : [address], [address] Albumin 4.2 3.5 - 5.0 g/dL [facility] ([place]) Comment:Testing performed by : [facility], [address] [place] [address], [address] Alk phos 79 40 - 130 Units/L [facility] ([place]) Comment:Testing performed by : [address], [address] ALT 16 7 - 45 Units/L [facility] ([place]) Comment:Testing performed by : [address], [address] AST 25 10 - 45 Units/L [facility] ([place]) Comment:Testing performed by : [address], [address] Blood 05/17/2025 10:1 3 AM CDT 05/17/2025 3:10 PM CDT us Ron Wagner NP LAB BLOOD ORDERABLES Final Result [facility] ([place]) 1 [facility] Department [place] [address] * (ABNORMAL) High Risk HPV DNA Detection with Genotyping (Molecular component) (03/03/2025 5:18 PM CDT) HPV HR 16 Not Detected Not Detected [facility] HPV HR 18 Not Detected Not Detected [facility] HPV HR Non 16/18 Detected(A) Not Detected [facility] Comment: Interpretive Data Nucleic acid amplification for detection of high-risk Human Papilloma virus (HPV) is performed by the Renetta Tierra 6800 HPV test. This assay specifically detects HPV-16 and HPV-18 genotypes. The following HPV genotypes are detected as high-risk HPV: HPV-31, 33, 35, ,39, 45, 51, 52, 56, 58, 59, 66, and 68. This assay has been approved by the [place] Food and Drug Administration for detection of HPV in cervical specimens collected by a physician using an endocervical brush/spatula or cervical broom and placed in the ThinPrep Pap Test PreservCyt collection containers. The performance characteristics of this test have been verified by the [facility] Molecular Infectious Disease laboratory. Correlate with separately reported cytology results, as applicable. Interpretive data last revised 23 Endocervical 03/03/2025 5:18 PM CDT 03/04/2025 8:51 AM CDT Narrative [facility] - 03/04/2025 6:56 PM CDT Clinical history and diagnosis->Routine well woman exam. No history of abnormal pap smears. Number of vials->1 Testing type->Screening Last menstrual period (date if known)->02/25/25 Contraceptive use->IUD us Peri Heck MD LAB BODY FLUIDS AND ST [facility] ORDERABLES Final Result [facility] [place] [address] [facility] from Last 3 Months or Most Recently Relevant to Health Maintenance Insurance [facility] CHOICE PLUS [employer] [facility] Advance Directives For more information, please contact: [phone] * Full Code (Latest Code Status on File) Date Activated Date Inactivated Comments 03/04/2023 4:33 PM 03/05/2023 8:39 PM Care 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
--- OUTSIDE RECORDS SUMMARY | 2025-06-16 18:19 | XMS_ITS | Referral Summary ---
Author Organization [facility] [address] [facility] lt Address [address] [place] [address] Care Team Providers Care Driller Multiple Spindle Name Role Phone Joaquin Lorenzana MD Primary Care Provider [phone] Encounters Date Type Department Care Team Description 06/10/2025 8:00 AM CDT Infusion [address] [place] [phone] Other iron deficiency anemia (Primary Dx) 06/02/[address] [place] [phone] Janie Garcia RN 06/02/2025 Orders Only [address] [place] [phone] Naye Alvarado, RN 06/01/2025 Orders Only [facility] [address] [phone] Ron Wagner NP Other iron deficiency anemia (Primary Dx) 06/01/2025 Results Follow-Up [facility] [place] [address] [place] [address] Ron Wagner, RAUL Ferritin, Iron profile w/ IBC 05/28/2025 1:50 PM CDT Lab [facility] [address] [place] [phone] Anemia, unspecified type 05/20/2025 Orders Only [facility] [address] [phone] Ron Wagner NP Anemia, unspecified type (Primary Dx); Colon cancer screening 05/20/2025 Results Follow-Up [facility] [address] [phone] Ron Wagner, RAUL Comprehensive metabolic panel, Thyroid Function [place], CBC with auto differential, Additional followed-up results: 2 05/17/2025 Telephone [facility] [address] [phone] Tracey Holt, [facility] 05/17/2025 10:15 AM CDT Lab [facility] [address] [place] [phone] Anemia, unspecified type; Moderate major depression (HCC) 05/07/2025 Telephone [facility] [address] [phone] Tracey Holt, SUPERVISOR [employer]SP[employer] 05/04/2025 4:00 PM CDT Office Visit [facility] [address] [phone] Ron Wagner NP Anemia, unspecified type (Primary Dx); Moderate major depression (HCC); Class 3 severe obesity due to excess calories with serious comorbidity and body mass index (BMI) of 40.0 to 44.9 in adult 03/18/2025 Results Follow-Up [address] [phone] Peri Heck MD Pap and High Risk HPV and Genotyping (Cytology Component) from Last 3 Months Allergies Active Allergy Reactions Criticality Noted Date [...] 11/19/2024 Assessment & Plan (11/19/2024 8:12 AM TECHNOLOGY INSTRUCTOR): Asymptomatic. Will recheck UA. Encouraged to push p.o. water intake. Vaginal candidiasis 10/06/2024 Assessment & Plan (10/06/2024 8:34 AM TECHNOLOGY INSTRUCTOR): Diflucan E scribed. Follow up with abe teacher if symptoms persist after treatment. Morbid (severe) obesity due to excess calories 0 03/04/2023 Dermoid cyst of right ovary 01/01/2023 Overview (01/01/2023): Added automatically from request for surgery [id number] Pelvic and perineal pain 01/01/2023 Overview (01/01/2023): Added automatically from request for surgery [id number] Preoperative clearance 12/07/2022 Assessment & Plan (12/07/2022 3:30 PM TECHNOLOGY INSTRUCTOR): Patient cleared for surgery pending review of labs and EKG. Denies history of surgery or previous anesthesia. Denies COPD/asthma, GERRY, DVT/PE. Allergic to sulfa. PMHx includes GERD, depression, PCOS, Right ovarian cyst. Non-smoker Gastroesophageal reflux disease 12/06/2022 Assessment & Plan (12/07/2022 3:21 PM TECHNOLOGY INSTRUCTOR): Well controlled on prn use of omeprazole 20 mg daily. Morbid obesity 12/06/2022 Major depressive disorder, recurrent episode, mi ld 12/06/2022 Annual physical exam 04/02/2022 Assessment & Plan (10/06/2024 8:27 AM TECHNOLOGY INSTRUCTOR): In regard to health maintenance, Screening labs ordered. She will complete today. WWE- past due. Will schedule with abe teacher Influenza vaccine administered today Eat a healthy diet: focus on lean meats and proteins, more fruits, vegetables and whole grains and low in sugars and fats. Limit red meat and avoid processed meat. Maintain a healthy weight; avoid being overweight. Aim for a normal body mass index (BMI) of 18.5-24.9. Help learning to eat healthier, we can set up appointment with estimator and drafter/r d internship. Have an active lifestyle, strive for 30 [...] healthier, we can set up appointment with estimator and drafter/r d internship. 3. Have an active lifestyle, strive for [...] & Plan (04/03/2022 9:37 AM CDT): 07/20/20 GC=113 HDL=57 EC=891 CLF=936 06/10/21 XN=530 HDL=54 SE=442 AFD=798 Lipid panel ordered; will call w/results when received. Reviewed diet/exercise recommendations. Assessment & Plan (05/15/2021 4:57 PM CDT): Lipid panel ordered; will call w/results when received. Reviewed diet/exercise recommendations. Menorrhagia with regular cycle 05/15/2021 Menorrhagia with irregular cycle 05/15/2021 Assessment & Plan (05/15/2021 4:55 PM CDT): Provera 10mg dailiy x5 sent. She is to engage with abe teacher for further eval. Will recheck CBC in [...] ED for more emergent eval. To engage w/abe teacher for menorrhagia. Need for influenza vaccination 09/13/2020 Assessment & Plan (08/14/2022 8:27 AM CDT): Flu vaccine given today. Discussed possible tenderness/redness at injection site. Assessment & Plan (09/13/2020 9:03 AM CDT): Flu vaccine given today. Discussed possible tenderness/redness at injection site. ADHD (attention deficit hype ractivity disorder), inattentive type 10/10/2018 Assessment & Plan (11/19/2024 8:12 AM TECHNOLOGY INSTRUCTOR): Will continue with Adderall at 5 mg and add lunchtime dose. Will monitor response. Assessment & Plan (10/06/2024 8:29 AM TECHNOLOGY INSTRUCTOR): Not controlled on bupropion. Will restart Adderall. [...] 09/09/2018 Assessment & Plan (11/19/2024 8:12 AM TECHNOLOGY INSTRUCTOR): Reports stable on bupropion. Will continue. Red flags reviewed. Assessment & Plan (12/07/2022 3:29 PM TECHNOLOGY INSTRUCTOR): Good control of symptoms on current medication [...] been off of bupropion for several months. [place] better whens he was taking them. Uncertain [...] other calcium sources. Consider making short and buttermaker continuous churn goal to track your progress. Keep a diet/exercise record or on line resource to track calories in and out. Discuss your efforts with me at the next visit. Look up Upside - this is a free calorie tracking dev. Discussed healthy diet and importance of regular physical activity. BMI 50.0-59.9, adult (CMS/HCC) 09/13/2020 11/12/2023 Morbid obesity with BMI of [...] other calcium sources. Consider making short and chcf goal to track your progress. Keep a diet/exercise record or on line resource to track calories in and out. Discuss your efforts with me at the next visit. 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 on file Not on file Not o n file Last Filed Vital Signs Vital Sign Reading [...] 05/04/2025 4:08 PM CDT Plan of Treatment Not on file Medical Devices Implanted Type Area Windscreen Fitter Device Identifier Shelf Expiration Date Model / [...] - 145 mcg/dl Comment:Testing performed by : [facility], [address] [place] [address]., [id number] TIBC 479(H) 250 - 400 mcg/dL DELMAR KIMBLE (BRENDAN) Comment:Testing performed by : [facility], [address] [place] [address], [id number] Transferrin saturation 3(L) 20 - 50 % DELMAR KIMBLE (BRENDAN) Comment:Testing performed by : [address], [id number] Blood 05/28/2025 1:49 PM CDT 05/28/2025 6:14 PM CDT Ron aWgner NP LAB BLOOD ORDERABLES Final Result Performing Organization Address City/[facility]/ZIP Co de Phone Number DELMAR KIMBLE (BRENDAN) 1 [facility] [employer]OC[employer] [place] [address] * (ABNORMAL) Ferritin (05/28/2025 1:49 PM CDT) Ferritin 8(L) 13 - 150 ng/mL Comment:Testing performed by : [address] [address] Blood 05/28/2025 1:49 PM CDT 05/28/2025 6:14 PM CDT Ron Wagner NP LAB BLOOD ORDERABLES Final Result DELMAR KIMBLE (BRENDAN) 1 [facility] Department [place] [address] * eGFR (05/17/2025 10:13 AM CDT) Pathologist [facility] eGFR >90 >=60 mL/min/1. 73 m2 Comment: [...] was last reviewed 2021. Testing performed by: [address] [address] Blood 05/17/2025 10:1 3 AM CDT 05/17/2025 3:19 PM CDT Ron Wagner NP LAB BLOOD ORDERABLES Final Result DELMAR KIMBLE (CHAMBERLAIN) 1 [facility] Department [place] [address] * (ABNORMAL) Differential, auto (05/17/2025 10:13 AM CDT) Pathologist [facility] Neutrophil abs 3.88 1.50 - 6.50 K/cumm Comment:Testing performed by : [facility], [address] [place] [address]., [id number] Imm gran abs 0.02 0.00 - 0.10 K/cumm DELMAR KIMBLE (BRENDAN) Comment:Testing performed by : [facility], [address] [place] [address]., [id number] Lymphocyte abs 2.18 0.80 - 3.30 K/cumm [facility] ([place]) Comment:Testing performed by : [facility], [address] [place] [address]., [address] Monocyte abs 0.83(H) 0.20 - 0.80 K/cumm [facility] ([place]) Comment:Testing performed by : [facility], [address] [place] [address], [id number] Eosinophil abs 0.16 0.00 - 0.50 K/cumm [facility] ([place]) Comment:Testing performed by : [facility], [address] [place] [address]., [address] Basophil abs 0.02 0.00 - 0.10 K/cumm [facility] ([place]) Comment:Testing performed by : [address], [address] Neutrophil pct 54.7 % [facility] ([place]) Comment: Interpretive Data Percent cell count reference ranges are not reported, since discordance with absolute values may lead to misinterpretation of CBC data. Current Interpretive Data was last revised on 2018. Testing performed by: [facility], [address] [place] [address], [address] Imm gran pct 0.3 % [facility] ([place]) Comment: Interpretive Data Percent cell count reference ranges are not reported, since discordance with absolute values may lead to misinterpretation of CBC data. Current Interpretive Data was last revised on 2018. Testing performed by: [address] [address] Lymphocyte pct 30.7 % [facility] ([place]) Comment: Interpretive Data Percent cell count reference ranges are not reported, since discordance with absolute values may lead to misinterpretation of CBC data. Current Interpretive Data was last revised on 2018. Testing performed by: [address] [address] Monocyte pct 11.7 % [facility] ([place]) Comment: Interpretive Data Percent cell count reference ranges are not reported, since discordance with absolute values may lead to misinterpretation of CBC data. Current Interpretive Data was last revised on 2018. Testing performed by: [address] [address] Eosinophil pct 2.3 % [facility] ([place]) Comment: Interpretive Data Percent cell count reference ranges are not reported, since discordance with absolute values may lead to misinterpretation of CBC data. Current Interpretive Data was last revised on 2018. Testing performed by: [facility], [address] [place] [address]., [address] Basophil pct 0.3 % [facility] ([place]) Comment: Interpretive Data Percent cell count reference ranges are not reported, since discordance with absolute values may lead to misinterpretation of CBC data. Current Interpretive Data was last revised on 2018. Testing performed by: [facility], [address] [place] [address], [address] Blood 05/17/2025 10:1 3 AM CDT 05/17/2025 3:10 PM CDT Ron Wagner NP LAB BLOOD ORDERABLES Final Result DELMAR KIMBLE (CHAMBERLAIN) 1 [facility] Department [place] [address] * Thyroid Function [place] (05/17/2025 10:13 AM CDT) Pathologist [facility] TSH 1.44 0.30 - 4.20 mcIUnit/mL Comment:Testing performed by : [facility], [address] [place] [address], [id number] Blood 05/17/2025 10:1 3 AM CDT 05/17/2025 3:10 PM CDT Ron Wagner NP LAB BLOOD ORDERABLES Final Result DELMAR KIMBLE (CHAMBERLAIN) 1 [facility] [place] [address] * (ABNORMAL) CBC with auto differential (05/17/2025 10:13 AM CDT) WBC 7.09 3.80 - 9.90 K/cumm Comment:Testing performed by : [address], [address] Hgb 9.5(L) 11.9 - 15.5 g/dL [facility] ([place]) Comment:Testing performed by : [address], [address] Hct 34.0(L) 35.6 - 45.5 % [facility] ([place]) Comment:Testing performed by : [address], [address] Plt 349 150 - 400 K/cumm [facility] ([place]) Comment:Testing performed by : [address], [address] MPV 10.2 9.1 - 12.3 fL [facility] ([place]) Comment:Testing performed by : [address], [address] RBC 4.70 3.90 - 5.20 M/cumm [facility] ([place]) Comment:Testing performed by : [address], [address] MCV 72.3(L) 81.3 - 96.4 fL [facility] ([place]) Comment:Testing performed by : [address], [address] MCH 20.2(L) 27.1 - 33.3 pg [facility] ([place]) Comment:Testing performed by : [address], [address] MCHC 27.9(L) 32.3 - 35.7 g/dL [facility] ([place]) Comment:Testing performed by : [address], [address] RDW CV 19.0(H) 11.1 - 14.9 % [facility] ([place]) Comment:Testing performed by : [address], [address] RDW SD 47.4 35.7 - 48.1 fL [facility] ([place]) Comment:Testing performed by : [address], [address] NRBC abs 0.00 0.00 - 0.01 K/cumm [facility] ([place]) Comment:Testing performed by : [address] [address] Blood 05/17/2025 10:1 3 AM CDT 05/17/2025 3:10 PM CDT Ron Wagner NP LAB BLOOD ORDERABLES Final Result [facility] 1 [facility] Department [place] [address] * Comprehensive metabolic panel (05/17/2025 10:13 AM CDT) Sodium 139 135 - 145 mmol/L Comment:Testing performed by : [address] [address] Potassium, pl 4.3 3.3 - 4.9 mmol/L [facility] ([place]) Comment:Testing performed by : [address], [address] Chloride 105 97 - 110 mmol/L [facility] ([place]) Comment:Testing performed by : [address], [address] CO2 22 22 - 32 mmol/L [facility] ([place]) Comment:Testing performed by : [address] [address] Anion gap 12 2 - 15 mmol/L [facility] ([place]) Comment:Testing performed by : [address], [address] BUN 11 6 - 25 mg/dL [facility] ([place]) Comment:Testing performed by : [address], [address] Creatinine 0.62 0.60 - 1.10 mg/dL [facility] ([place]) Comment:Testing performed by : [address], [address] Glucose 72 70 - 199 mg/dL [facility] ([place]) Comment: Interpretive Data Fasting glucose [...] was last revised 2022. Testing performed by: [facility], [address] [place] [address], [address] Calcium 9.1 8.5 - 10.3 mg/dL [facility] ([place]) Comment:Testing performed by : [address], [address] Bilirubin, total 0.4 0.1 - 1.2 mg/dL [facility] ([place]) Comment:Testing performed by : [address], [address] Protein, pl 7.5 6.5 - 8.5 g/dL [facility] ([place]) Comment:Testing performed by : [address], [address] Albumin 4.2 3.5 - 5.0 g/dL [facility] ([place]) Comment:Testing performed by : [facility], [address] [place] [address], [address] Alk phos 79 40 - 130 Units/L [facility] ([place]) Comment:Testing performed by : [address], [address] ALT 16 7 - 45 Units/L [facility] ([place]) Comment:Testing performed by : [address], [address] AST 25 10 - 45 Units/L [facility] ([place]) Comment:Testing performed by : [address], [address] Blood 05/17/2025 10:1 3 AM CDT 05/17/2025 3:10 PM CDT us Ron Wagner NP LAB BLOOD ORDERABLES Final Result [facility] ([place]) 1 [facility] Department [place] [address] * (ABNORMAL) High Risk HPV DNA Detection with Genotyping (Molecular component) (03/03/2025 5:18 PM CDT) HPV HR 16 Not Detected Not Detected [facility] HPV HR 18 Not Detected Not Detected [facility] HPV HR Non 16/18 Detected(A) Not Detected [facility] Comment: Interpretive Data Nucleic [...] this test have been verified by the [facility] Molecular Infectious Disease laboratory. Correlate with separately reported cytology results, as applicable. Interpretive data last revised 23 Endocervical 03/03/2025 5:18 PM CDT 03/04/2025 8:51 AM CDT Narrative [facility] - 03/04/2025 6:56 PM CDT Clinical history and diagnosis->Routine well woman exam. No history of abnormal pap smears. Number of vials->1 Testing type->Screening Last menstrual period (date if known)->02/25/25 Contraceptive use->IUD us Peri Heck MD LAB BODY FLUIDS AND ST OOLS ORDERABLES Final Result [facility] Department [place] [address] [facility] from Last 3 Months or Most Recently Relevant to Health Maintenance Insurance [facility]PP[facility] Address: [address] [address] [place] [address] EventWith [facility] [employer] [place] Advance Directives For more information, please contact: [phone] * Full Code (Latest Code Status on File) Date Activated Date Inactivated Comments 03/04/2023 4:33 PM 03/05/2023 8:39 PM Care Teams Driller Multiple Spindle Relationship Specialty Start Date End Date Joaquin Lorenzana MD [address] [place] [address] PCP - General Family Medicine 08/14/22
[2025-06-16 18:24] VITALS: BP 129/80; PULSE 92; RESP 18; TEMP 37.3; O2SAT 100
--- NOTE | 2025-06-16 18:33 | ED_ITS ---
HPI - General Adult General Chief complaint: Headache Stated complaint: Head Injury/Headache Time Seen by Provider: 06/16/25 18:33 Source: patient Mode of arrival: ambulatory Limitations: no limitations History of Present Illness HPI narrative: 39 yo F presents with c/o intermittent headache since falling 5 days ago. pt states she got out of bed to let her dog in and fell into the door. Denies LOC. Went back to bed. Woke up next morning and R side of head hurt. Not sure what she hit her head on. No N/V, vision changes. Ambulatory with steady gait. has been going to work and doing her normal daily routine. Thinks she may have a concussion and her aunt told her she could get head CT here. All systems reviewed and negative except as noted above. Related Data Home Medications ?Medication ?Instructions ?Recorded ?Confirmed ?Last Taken ?Type bupropion HCl 150 mg 24 hr tablet, mg PO 06/16/25 Unknown History extended release bupropion HCl 300 mg 24 hr tablet, mg PO 06/16/25 Unknown History extended release Allergies Allergy/AdvReac Type Severity Reaction Status Date / Time Sulfa (Sulfonamide Allergy Unknown Rash Verified 05/05/21 16:23 Antibiotics) Review of Systems Review of Systems: CONSTITUTIONAL: Denies fever, chills, or sweats. EYES: Denies visual changes, redness, or discharge. ENT: Denies rhinorrhea, congestion, sore throat, or otalgia. CARDIOVASCULAR: Denies chest pain, palpitations, or edema. RESPIRATORY: Denies cough or dyspnea. GASTROINTESTINAL: Denies abdominal pain, nausea, vomiting, or diarrhea. GENITOURINARY: Denies dysuria or hematuria. SKIN: Denies rash or itching. MUSCULOSKELETAL: Denies back pain, joint pain, or myalgia. NEUROLOGIC: Reports headache. Denies numbness, or weakness. PSYCHIATRIC: Denies anxiety or depression. All other systems reviewed are negative, except as documented in HPI. [facility] Past Medical History Medical History ADHD Anxiety Depression History of PCOS Surgical History Surgical History History of tympanostomy tube placement Social History Social History (Updated 05/05/21 @ 18:54 by Keira Acosta, SERVICE VEHICLE OPERATOR) Smoking status: Former smoker Alcohol intake: never Substance use: never Living arrangements: with family Gender identity (if verbalized by the patient): Female Comments At time of signature, agree with nursing past medical, surgical, social and family history. There is no relevant family history pertinent to the presenting complaint. Exam Narrative: GENERAL: This is a well-nourished, well-developed patient, in no apparent distress. HEAD: normocephalic, atraumatic. EYES: PERRL. Sclera clear/white. Vision is grossly intact. extraocular motions intact EARS: External ears normal NOSE: External nose normal NECK: Neck supple, non-tender without lymphadenopathy, masses or thyromegaly. CARDIOVASCULAR: Regular rate and rhythm without murmurs, gallops, or rubs. RESPIRATORY: Clear to auscultation. Breath sounds equal bilaterally. No wheezes, rales, or rhonchi. SKIN: warm, Dry, intact with no suspicious lesions or rash, good texture and turgor. NEURO: awake, alert, and oriented to person, place and time. There were no obvious focal neurologic abnormalities. 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 All extremities strength 5/5 EXTREMITIES: No joint tenderness, effusion, or edema noted. Course Course Level of Care: [facility] Visit Vital Signs Vital signs: Vital Signs Temperature 37.3 C 06/16/25 18:24 Pulse Rate 92 06/16/25 18:24 Respiratory Rate 18 06/16/25 18:24 Blood Pressure 129/80 06/16/25 18:24 Pulse Oximetry 100 06/16/25 18:24 Oxygen Delivery Room Air 06/16/25 18:24 Temperature 37.3 C 06/16/25 18:24 Pulse Rate 92 06/16/25 18:24 Respiratory Rate 18 06/16/25 18:24 Blood Pressure 129/80 06/16/25 18:24 Pulse Oximetry 100 06/16/25 18:24 Oxygen Delivery Room Air 06/16/25 18:24 reviewed Medical Decision Making MDM Narrative Medical decision making narrative: patient is well-appearing. No neuro deficits. No contusions noted on exam of scalp. discussed concussion symptoms with pt. explained to pt that we are not able to do CT scan at [facility]. explained the a concussion is not seen on a CT scan, looking for contusion, brain bleed or skull fx. offered to transfer pt to ER for head CT. She did not feel was necessary. Will see her PCP. Vital Signs Vital Signs: Vital Signs Temperature 37.3 C 06/16/25 18:24 Pulse Rate 92 06/16/25 18:24 Respiratory Rate 18 06/16/25 18:24 Blood Pressure 129/80 06/16/25 18:24 Pulse Oximetry 100 06/16/25 18:24 Oxygen Delivery Room Air 06/16/25 18:24 Temperature 37.3 C 06/16/25 18:24 Pulse Rate 92 06/16/25 18:24 Respiratory Rate 18 06/16/25 18:24 Blood Pressure 129/80 06/16/25 18:24 Pulse Oximetry 100 06/16/25 18:24 Oxygen Delivery Room Air 06/16/25 18:24 Discharge Plan Discharge Clinical Impression: Head injury Qualifiers: Encounter type: initial encounter Qualified Code(s): S09.90XA - Unspecified injury of head, initial encounter Patient Disposition: Home Condition: Stable Instructions: Concussion (ED), Head Injury (ED) Additional Instructions: Read over discharge instructions regarding symptoms of a concussion. See your primary care physician for follow up. If you are vomiting, have vision changes, difficulty waking up, unable to walk due to weakness or facial droop, change in speech go to the ER. Patient Language: Samoan Prescriptions: No Action bupropion HCl 300 mg tablet extended release 24 hr PO bupropion HCl 150 mg tablet extended release 24 hr PO naproxen 500 mg tablet 500 mg PO BID 7 Days Qty: 14 0RF Follow-up/Referrals: Harms,Joaquin Espana M.D. [Primary Care Provider] - Time of Disposition: 18:42
== END 2025-06-16 18:47 | disposition home or self-care (01) ==
PROVIDERS: Emergency Provider Nurse Practitioner Family; PCP Family Medicine
DX: S09.90XA Unspecified injury of head, initial encounter (principal); W19.XXXA Unspecified fall, initial encounter; E28.2 Polycystic ovarian syndrome; F41.9 Anxiety disorder, unspecified; F32.A Depression, unspecified; Z87.891 Personal history of nicotine dependence
CPT/HCPCS: 99212; G0463